=== PATIENT | female | born 1965 | race African-American/Black ===

== ENCOUNTER 2017-06-02 13:54 | Observation (INO) | payer MEDICARE ==
[~2017-06-02] VITALS: Ht 149.9 cm; Wt 86.7 kg
[2017-06-02] MEDS ORDERED: AMITRIPTYLINE H25 MG PO (14:25)
[2017-06-02] MEDS ORDERED: CARVEDILOL12.5 MG PO (14:25)
[2017-06-02] MEDS ORDERED: ASPIRIN81 MG PO (14:25)
[2017-06-02] MEDS ORDERED: ASPIR 8181 MG (14:25)
[2017-06-02] MEDS ORDERED: AMLODIPINE BESYL5 MG PO (14:25)
[2017-06-02] MEDS ORDERED: CLONIDINE HCL0.3 MG PO (14:25)
[2017-06-02] MEDS ORDERED: LISINOPRIL10 MG PO (14:25)
[2017-06-02] MEDS ORDERED: METFORMIN HCL500 MG PO (14:25)
[2017-06-02] MEDS ORDERED: CLOPIDOGREL75 MG PO (14:25)
[2017-06-02] MEDS ORDERED: DEXTROSE 50% SYRINGE 50 ML IV ONE (14:51)
[2017-06-02 15:04] LABS: BASOPHILS % 0.5 % (0.0-1.0); EOSINOPHILS # (AUTO) 0.1 (0.0-0.4); EOSINOPHILS % 0.9 % (0.0-6.0); LYMPHOCYTES # (AUTO) 2.8 (1.0-3.2); LYMPHOCYTES % 33.4 % (18.0-39.1); MEAN CORPUSCULAR HEMOGLOBIN 27.6 pg (28-32); MEAN CORPUSCULAR HGB CONC 32.5 g/dL (31-35); MEAN CORPUSCULAR VOLUME 84.9 fL (81-99); MONOCYTES # (AUTO) 0.5 (0.2-0.8); MONOCYTES % 5.7 % (4.4-11.3); NEUTROPHILS % 59.3 % (38.7-80.0); PLATELET COUNT 230 x10e3/uL (140-360); RED BLOOD COUNT 4.71 x10e6/uL (3.6-5.1); RED CELL DISTRIBUTION WIDTH 12.6 % (11.7-14.4)
[2017-06-02 15:13] LABS: INR 0.84; PARTIAL THROMBOPLASTIN TIME 19.6 seconds (23.8-35.5); PROTHROMBIN TIME 11.9 seconds (11.9-14.5)
[2017-06-02 15:20] LABS: ALBUMIN 3.5 g/dL (3.5-5.0); ALBUMIN/GLOBULIN RATIO 0.8 (0.8-2.0); ANION GAP 13.5 mmol/L (8-16); CALCIUM 10.2 mg/dL (8.4-10.2); CREATININE, SERUM 1.55 mg/dL (0.57-1.11); POTASSIUM 3.5 mmol/L (3.5-5.1)
[2017-06-02 15:27] LABS: CREATINE KINASE MB 2.9 ng/mL (0.00-5.00); TROPONIN I 0.012 ng/mL (0-0.300)
--- NOTE | 2017-06-02 15:45 | Diagnostic Imaging Report ---
EXAMINATION: Head CT HISTORY: Altered mental status, lethargic, history of strokes COMPARISON: None. TECHNIQUE: Multidetector axial images were obtained without contrast from the foramen magnum to the vertex . The images were reconstructed using brain and bone algorithms. Thin section brain images were reformatted into coronal and sagittal planes. Intravenous contrast: None. Motion/streaking artifact limits the evaluation of the skull base and posterior cranial fossa. FINDINGS: Parenchyma: 1. Severe confluent periventricular, graham radiata and centrum semiovale white matter hypodensities, most likely nonspecific chronic microvascular ischemic changes. 2. Age-indeterminate likely chronic lacunar infarcts in the bilateral caudate nuclei, bilateral lentiform nuclei, bilateral thalami and rickey. 3. No mass or hemorrhage. No CT evidence of acute territorial vascular insult. Extra-axial spaces:No abnormal density. No extra-axial fluid collections Brain volume: Normal for age. Ventricles: No hydrocephalus or displacement. Arteries: No density suggestive of thrombus. Dural sinuses: No abnormal density. Extra-axial spaces: No abnormal density. Foramen magnum: No mass, Chiari malformation, or basilar invagination. Sella: No obvious mass. Paranasal/mastoid sinuses: Imaged portions unremarkable. Skull/Scalp: No lytic or blastic lesions. No fractures. IMPRESSION: 1. No acute intracranial hemorrhage or cortical infarcts. 2. Severe confluent white matter chronic microvascular changes. Superimposed acute vascular insult cannot be excluded. If clinical concern remains considered further evaluation with brain MRI. 3. Multiple age indeterminate likely chronic lacunar infarcts. Signed by: Dr. Brandy Garcia M.D. on 06/02/2017 3:42 PM
[2017-06-02] MEDS ORDERED: DEXTROSE 5%/0.9% SOD CHL 1,000 ML IV ONE (16:30)
[2017-06-02] MEDS: INSULIN REGULAR, HUMAN 100 UNIT/1 ML 3ML VIAL SQ SCH ×2 (16:30→20:53)
[2017-06-02] MEDS ORDERED: DEXTROSE 50% SYRINGE 50 ML IV PRN (16:30)
[2017-06-02 17:36] LABS: BILIRUBIN,URINE NEGATIVE (NEGATIVE); KETONES,URINE NEGATIVE (NEGATIVE); LEUKOCYTE ESTERASE ,URINE NEGATIVE (NEGATIVE); NITRITE,URINE NEGATIVE (NEGATIVE); PROTEIN,URINE DIPSTICK NEGATIVE (NEGATIVE); URINE UROBILINOGEN 0.2 mg/dL (0.2 - 1)
[2017-06-02 17:38] LABS: CLARITY,URINE SL CLOUDY (CLEAR); COLOR,URINE YELLOW (YELLOW)
[2017-06-02 17:55] LABS: AMPHETAMINES SCREEN,URINE NEGATIVE (NEGATIVE); BENZODIAZEPINES SCREEN,URINE NEGATIVE (NEGATIVE); PHENCYCLIDINE SCREEN,URINE NEGATIVE (NEGATIVE)
[2017-06-02 18:25] LABS: BACTERIA,URINE MANY /HPF; CANNABINOIDS SCREEN,URINE NEGATIVE (NEGATIVE); EPITHELIAL CELLS,URINE FEW /LPF
[2017-06-02 20:43] VITALS: BP 140/76
[2017-06-03] VITALS: BP 127/72
[2017-06-03 04:00] VITALS: BP_SYST 114; BP_SYST 115; BP_DIAS 56; BP_DIAS 65
[2017-06-03] MEDS: INSULIN REGULAR, HUMAN 100 UNIT/1 ML 3ML VIAL SQ SCH ×4 (07:30→21:28)
[2017-06-03 07:46] VITALS: BP 125/58
[2017-06-03 11:39] VITALS: BP 133/68
--- NOTE | 2017-06-03 12:42 | History and Physical ---
HISTORY OF PRESENT ILLNESS: A 52-year-old female with past medical history positive for hypertension, diabetes, history of CVAs in the past, but came here with hypoglycemia. REVIEW OF SYSTEMS: CARDIOVASCULAR: No chest pain, no palpitation. RESPIRATORY: No shortness of breath, no cough. GASTROINTESTINAL: No nausea, no vomiting, no diarrhea. GENITOURINARY: No frequency, no dysuria. ALLERGIES: ALLERGIC TO TYLENOL, HYDROCODONE AND PENICILLINS. SOCIAL HISTORY: She does not smoke. She gil not drink. PHYSICAL EXAMINATION: VITAL SIGNS: Blood pressure 125/58, temperature 98.6, heart rate 75 per minute, respiratory rate is 20 per minute. Oxygen saturation 93%. HEART: Shows regular rhythm. Normal S1 and S2 sounds. LUNGS: Clear bilaterally. ABDOMEN: Soft. EXTREMITIES: Show no evidence of cyanosis, edema or trauma. NEUROLOGIC: Alert, oriented x3. No motor deficits. CT of the head: Showed multiple lacunar infarcts. LABORATORY DATA: On the blood work we have a BMP with a sodium 143, potassium 3.5, chloride 108, CO2 25, BUN 30, creatinine 1.55 and glucose 51. The CBC showed white blood count 8.45, hemoglobin 13.0, hematocrit 40.0, platelet count 230,000. PT 11.9, PTT 19.6, INR 0.84. AST 24, ALT 26, total bilirubin 0.3, alkaline phosphatase 85. FINAL IMPRESSION: 1. Hypoglycemia. 2. Hypertension. 3. Hypertension with hypertensive nephropathy. 4. History of cerebrovascular accidents in the past. 5. Diabetes mellitus type 2 with chronic renal failure. 6. Acute on chronic renal failure stage 3. PLAN OF TREATMENT: Continue IV fluids. Continue monitoring blood sugar a.c. and nightly. Continue diabetic diet. Resume home medications. We are going to do a renal ultrasound. We are going to monitor BUN, creatinine and potassium also. Job#: [id number] EV
[2017-06-03 15:27] VITALS: BP 148/72
[2017-06-03] MEDS: CARVEDILOL 12.5 MG TAB PO SCH (16:42)
[2017-06-03 20:00] VITALS: BP 168/87
[2017-06-03 21:18] LABS: ANION GAP 16.2 mmol/L (8-16); CALCIUM 9.4 mg/dL (8.4-10.2); CREATININE, SERUM 1.39 mg/dL (0.57-1.11); POTASSIUM 4.2 mmol/L (3.5-5.1)
[2017-06-04] VITALS: BP 174/76
[2017-06-04 04:00] VITALS: BP 174/88
[2017-06-04] MEDS ORDERED: HYDRALAZINE HCL 20 MG/ML VIAL IV PRN (05:45)
[2017-06-04 06:48] LABS: ANION GAP 14.3 mmol/L (8-16); BLOOD UREA NITROGEN 17 mg/dL (7-26); BUN/CREATININE RATIO 16 (6-25); CALCIUM 9.7 mg/dL (8.4-10.2); CARBON DIOXIDE 26 mmol/L (22-29); CHLORIDE 104 mmol/L (98-107); CREATININE, SERUM 1.05 mg/dL (0.57-1.11); EST GLOMERULAR FILTRATION RATE > 60 ML/MIN (60-); GLUCOSE 177 mg/dL (74-118); POTASSIUM 3.3 mmol/L (3.5-5.1); SODIUM 141 mmol/L (136-145)
[2017-06-04 08:24] VITALS: BP 164/80
[2017-06-04] MEDS ORDERED: ASPIRIN 81 MG CHEW TAB PO SCH (09:00)
[2017-06-04] MEDS ORDERED: AMLODIPINE BESYLATE 5 MG TAB PO SCH (09:00)
[2017-06-04] MEDS: INSULIN REGULAR, HUMAN 100 UNIT/1 ML 3ML VIAL SQ SCH ×4 (09:25→21:34)
[2017-06-04] MEDS: AMLODIPINE BESYLATE 5 MG TAB PO SCH (09:33)
[2017-06-04] MEDS: CLOPIDOGREL BISULFATE 75 MG TAB PO SCH (09:33)
[2017-06-04] MEDS: LISINOPRIL 10 MG TAB PO SCH (09:33)
[2017-06-04] MEDS: ASPIRIN 81 MG CHEW TAB PO SCH (09:33)
[2017-06-04] MEDS: CARVEDILOL 12.5 MG TAB PO SCH ×2 (09:33→17:26)
[2017-06-04] MEDS: CLONIDINE HCL 0.3 MG TAB PO SCH (09:33)
[2017-06-04 12:22] VITALS: BP 116/64
--- NOTE | 2017-06-04 12:26 | Progress Note ---
DATE: June 04, 2017 INTERNAL MEDICINE PROGRESS NOTE SUBJECTIVE: Patient is doing well today. PHYSICAL EXAM: HEART: Shows regular rhythm. Normal S1 and S2 sounds. LUNGS: Clear bilaterally. ABDOMEN: Soft. EXTREMITIES: Show no evidence of cyanosis, edema or trauma. VITAL SIGNS: On the blood pressure 164/80, temperature 97.2, heart rate 75 per minute, respiratory rate is 18 per minute, oxygen saturation 95%. LAB: On the BMP: Sodium 141, potassium 3.3, chloride 104, CO2 26, BUN 17, creatinine 1.05, glucose 177. On the CBC: White blood count 8.45, hemoglobin 13.0, hematocrit 40.0, platelet count 230,000. PT 11.9, PTT 19.6, INR 0.84. AST 24, ALT 26, total bilirubin 0.3, alkaline phosphatase 85. FINAL IMPRESSION: 1. Uncontrolled diabetes mellitus type 2, status post hypoglycemia, now is hyperglycemic. 2. Hypertension with hypertensive nephropathy. 3. History of cerebrovascular accident. 4. Diabetes mellitus type 2 with chronic renal insufficiency. 5. [id number] renal insufficiency, which is resolving. PLAN OF TREATMENT: We are going to start Amaryl 2 mg daily because the patient has got hypercalcemia right now. She is also on Coreg 25 mg twice a day. Norvasc 10 mg daily. Lisinopril 20 mg daily. Plavix 75 mg daily. Aspirin 81 mg daily due to a history of prior strokes. We are going to also put her on Lipitor 20 mg daily. Job#: [id number] EV
[2017-06-04] MEDS ORDERED: POTASSIUM CHLORIDE 20 MEQ TAB CR PO NR (12:30)
[2017-06-04 16:56] VITALS: BP 128/60
--- NOTE | 2017-06-04 19:05 | Diagnostic Imaging Report ---
EXAMINATION: Renal ultrasound. CLINICAL HISTORY :Acute renal failure COMPARISON: <None available.> TECHNIQUE: Grayscale and color Doppler evaluation of the kidneys and bladder was performed in transverse and longitudinal planes. DISCUSSION: RIGHT KIDNEY: The right kidney measures 12 cm in length and shows normal echogenicity. No hydronephrosis, shadowing calculi or solid mass lesions. LEFT KIDNEY: The left kidney measures 11.7 cm in length and shows normal echogenicity. No hydronephrosis, shadowing calculi or solid mass lesions. BLADDER: Unremarkable. IMPRESSION: Normal renal ultrasound. No obstruction. Signed by: Dr. Bobby Ortega M.D. on 06/04/2017 7:01 PM
[2017-06-04 19:43] LABS: ANION GAP 12.7 mmol/L (8-16); CALCIUM 9.5 mg/dL (8.4-10.2); CREATININE, SERUM 1.28 mg/dL (0.57-1.11); POTASSIUM 3.7 mmol/L (3.5-5.1)
[2017-06-04 19:51] VITALS: BP 126/74
[2017-06-05 01:36] VITALS: BP 130/70
[2017-06-05] MEDS: INSULIN REGULAR, HUMAN 100 UNIT/1 ML 3ML VIAL SQ SCH ×2 (07:30→12:58)
[2017-06-05] MEDS ORDERED: GLIMEPIRIDE 2 MG TAB PO SCH (08:00)
[2017-06-05 08:34] VITALS: BP 145/72
[2017-06-05] MEDS: CARVEDILOL 12.5 MG TAB PO SCH (09:37)
[2017-06-05] MEDS: ASPIRIN 81 MG CHEW TAB PO SCH (09:37)
[2017-06-05] MEDS: CLONIDINE HCL 0.3 MG TAB PO SCH (09:37)
[2017-06-05] MEDS: AMLODIPINE BESYLATE 5 MG TAB PO SCH (09:37)
[2017-06-05] MEDS: CLOPIDOGREL BISULFATE 75 MG TAB PO SCH (09:37)
[2017-06-05] MEDS: LISINOPRIL 10 MG TAB PO SCH (09:37)
[2017-06-05 12:00] VITALS: BP 130/65
[2017-06-05] MEDS ORDERED: AMLODIPINE BESYL5 MG PO (12:12)
[2017-06-05] MEDS ORDERED: MAGNESIUM SULFATE 2GM/50ML 50 ML IV ONE (12:30)
[2017-06-05] MEDS ORDERED: AMLODIPINE BESY10 MG PO (15:08)
--- NOTE | 2017-06-06 03:21 | Discharge Summary ---
A 52-year-old female with a past medical history positive for hypertension, diabetes, CVA in the past came here with hypoglycemia. The hypoglycemia resolved, and then she started getting hyperglycemic. We started the patient on glimepiride, which we are going to increase to 3 mg daily. Patient has been started on carvedilol, amlodipine and also clonidine for blood pressure control and lisinopril also. She is ready to go home today. The magnesium level is 1.3, which is on the low side of normal limits. We are going to give magnesium sulfate 2 g IV one time. The patient is going home today to follow up with me in 2 weeks. The blood pressure is 145/72, temperature is 97.1, heart rate 72 per minute, respiratory rate 18 per minute, oxygen saturation 98%. On the BMP, sodium 139, potassium 3.7, chloride 102, CO2 28, BUN 33, creatinine 1.28, glucose 216. On the CBC, white blood count 8.45, hemoglobin 13., hematocrit 40, and platelet count of 230,000. PT 11.9, PTT 19.6 and INR 0.84. AST 24, ALT 26, total bilirubin 0.3, alkaline phosphatase 85. FINAL IMPRESSION 1. Diabetes mellitus, type 2, which is uncontrolled with chronic renal failure. 2. Renal failure, stage 2 to 3 secondary to diabetic nephropathy. 3. Essential hypertension with hypertensive nephropathy. PLAN OF TREATMENT: Patient is going to be discharged on: 1. Glimepiride 3 mg daily. 2. Aspirin 81 mg daily. 3. Carvedilol 25 mg twice a day. 4. Amlodipine 10 mg daily. 5. Clonidine 0.3 mg daily. 6. Plavix 75 mg daily . 7. Lisinopril 20 mg daily. Follow up in a couple of weeks. DIET: Diabetic and renal diet. YONATAN ROTHMAN MD Job#: [id number] AL
== END 2017-06-05 15:37 | disposition home or self-care (01) ==
LOC: ER 13:54 → ERHOLD 18:51 → IMCU 18:53
PROVIDERS: ADMIT Internal Medicine; ATTEND Internal Medicine
DX: E11.649 Type 2 diabetes mellitus with hypoglycemia without coma (principal); E11.22 Type 2 diabetes mellitus with diabetic chronic kidney disease; I12.9 Hypertensive chronic kidney disease with stage 1 through stage 4 chronic kidney disease, or unspecified chronic kidney disease; N18.3 Chronic kidney disease, stage 3 (moderate); N17.9 Acute kidney failure, unspecified; Z86.73 Personal history of transient ischemic attack (TIA), and cerebral infarction without residual deficits; E11.65 Type 2 diabetes mellitus with hyperglycemia; E83.42 Hypomagnesemia
CPT/HCPCS: 36415 ×4; 70450; 76770; 80048 ×2; 80053; 80307; 81001; 82550; 82553; 82948 ×4; 83036; 83735 ×2; 84484; 85025; 85610; 85730; 93005; 99284; G0378 ×4; J7042; J7799